=== PATIENT | female | born 1990 | race Asian ===

== ENCOUNTER 2021-05-13 09:25 | Outpatient (CLI) | payer BC, OTHER ==
[~2021-05-13] VITALS: Ht 165.1 cm; Wt 75.7 kg
== END 2021-05-13 19:40 | disposition home or self-care (01) ==
LOC: INF 09:25
PROVIDERS: ATTEND Family Medicine
DX: Z23 Encounter for immunization (principal); U07.1 COVID-19
CPT/HCPCS: 96365; M0244

== ENCOUNTER 2021-05-19 15:14 | Outpatient (CLI) | payer BC, OTHER | END 2021-05-19 20:20 | disposition home or self-care (01) | LOC: RAD 15:14 | PROVIDERS: ATTEND Nurse Practitioner Family | DX: U07.1 COVID-19 (principal) ==

== ENCOUNTER 2023-01-02 07:40 | Emergency (ER) | payer BC ==
[~2023-01-02] VITALS: Ht 165.1 cm; Wt 74.8 kg
[2023-01-02 07:40] VITALS: TEMP 97.8
[2023-01-02 07:59] LABS: PLATELET COUNT 271 K/uL (152-353); POTASSIUM 3.8 mmol/L (3.6-5.2)
[2023-01-02 10:15] VITALS: BP 112/61
== END 2023-01-02 10:15 | disposition home or self-care (01) ==
LOC: ED 07:40
PROVIDERS: Emergency Medicine
DX: R10.9 Unspecified abdominal pain (principal); R19.7 Diarrhea, unspecified; K29.70 Gastritis, unspecified, without bleeding; K27.9 Peptic ulcer, site unspecified, unspecified as acute or chronic, without hemorrhage or perforation; F17.210 Nicotine dependence, cigarettes, uncomplicated
CPT/HCPCS: 36415; 80053; 81000; 81025; 82150; 83690; 85027; 96361; 96374; 96375; 96376; 99284; J1885; J2270; J2405; J2765; J3490; Q9963